=== PATIENT | male | born 1940 | race Caucasian/White ===

== ENCOUNTER → 2017-03-23 | Outpatient (CLI) | payer MEDICARE, OTHER ==
[~2017-03-23] MED LIST: ALLOPURINOL100 MG PO; FLOMAX 0.40.4 MG/CAP PO; ZYLOPRIM 300MG300 MG PO
== END ==
LOC: COL.RAD 09:05
DX: C64.9 Malignant neoplasm of unspecified kidney, except renal pelvis (principal); I67.82 Cerebral ischemia
CPT/HCPCS: A9585